=== PATIENT | female | born 1975 | race African-American/Black ===

== ENCOUNTER 2016-12-09 15:02 | Emergency (ER) | payer SELFPAY ==
[~2016-12-09] VITALS: Ht 162.6 cm; Wt 71.5 kg
[2016-12-09 15:12] VITALS: TEMP 37.3; Ht 162.6 cm; Wt 71.5 kg
--- NOTE | 2016-12-09 16:33 | EMERGENCY ROOM VISIT NOTE ---
History First contact with patient: 16:03 Chief Complaint: ABDOMINAL PAIN Stated Complaint: ABDOMINAL PAIN, MORE FREQUENT URINATION, CHILLS Nursing Triage Summary: pt reports abdominal pain since , denies vomitting , denies urinary sx History of Present Illness The patient is a 41 year old female who presents to the Emergency Room with complaints of abdominal pain. The patient states that last she began to have chills at night along with suprapubic pain. Over the weekend she also began to have joint pain, specifically in her knees and hips. Then 2 days ago she began to have diffuse abdominal pain, night sweats, and also noticed some blood in her urine. She also states that at this time she noticed some yellow color on the tissue paper when wiping after urination. Last Wednesday the patient was having intercourse and states that the condom broke during intercourse. She is not on control at this time. She is from [place] but denies any travel since July. The patient denies any headache, constipation, chest pain, nausea, vomiting, changes in vision, numbness, tingling, or any other acute complaints. Review of Systems See HPI for pertinent positives and negatives. A total of ten systems were reviewed and were otherwise negative. Past Medical/Surgical History Medical Problems: (1) No significant past medical history Social History Smoking Status: Never Smoker Current/Historical Medications No Active Prescriptions or Reported Meds Allergies Coded Allergies: No Known Allergies (Unverified , 12/09/16) Physical Exam Vital Signs Date Time Temp Pulse Resp B/P (MAP) Pulse Ox O2 Delivery O2 Flow Rate FiO2 12/09/16 18:24 98 15 108/64 96 12/09/16 15:12 37.3 79 18 126/88 98 Room Air Physical Exam GENERAL: Awake, alert, well-appearing, in no distress HENT: Normocephalic, atraumatic. Oropharynx unremarkable. EYES: Normal conjunctiva. Sclera non-icteric. NECK: Supple. No nuchal rigidity. RESPIRATORY: Clear to auscultation. CARDIAC: Regular rate, normal rhythm. Extremities warm and well perfused. Pulses equal. ABDOMEN: Soft, non-distended. Suprapubic tenderness to palpation. No rebound or guarding. No masses. RECTAL: Deferred. MUSCULOSKELETAL: Chest examination reveals no tenderness. The back is symmetrical on inspection without obvious abnormality. There is mild right sided CVA tenderness to palpation. LOWER EXTREMITIES: Calves are equal size bilaterally and non-tender. No edema. No discoloration. NEURO: Normal sensorium. No sensory or motor deficits noted. SKIN: No rash or jaundice noted. Medical Decision & Procedures Laboratory Results 12/09/16 16:24 Red Blood Count 4.32, Mean Corpuscular Volume 87.7, Mean Corpuscular Hemoglobin 30.3, Mean Corpuscular Hemoglobin Concent 34.6, Mean Platelet Volume 11.0, Neutrophils (%) (Auto) 80.8, Lymphocytes (%) (Auto) 10.5, Monocytes (%) (Auto) 7.8, Eosinophils (%) (Auto) 0.3, Basophils (%) (Auto) 0.4, Neutrophils # (Auto) 7.96, Lymphocytes # (Auto) 1.04, Monocytes # (Auto) 0.77, Eosinophils # (Auto) 0.03, Basophils # (Auto) 0.04 12/09/16 16:24 Test 12/09/16 16:24 12/09/16 16:30 White Blood Count 9.86 K/uL (4.8-10.8) Red Blood Count 4.32 M/uL (4.2-5.4) Hemoglobin 13.1 g/dL (12.0-16.0) Hematocrit 37.9 % (37-47) Mean Corpuscular Volume 87.7 fL (80-100) Mean Corpuscular Hemoglobin 30.3 pg (25-34) Mean Corpuscular Hemoglobin Concent 34.6 g/dl (32-36) Platelet Count 141 K/uL (130-400) Mean Platelet Volume 11.0 fL (7.4-10.4) Neutrophils (%) (Auto) 80.8 % Lymphocytes (%) (Auto) 10.5 % Monocytes (%) (Auto) 7.8 % Eosinophils (%) (Auto) 0.3 % Basophils (%) (Auto) 0.4 % Neutrophils # (Auto) 7.96 K/uL (1.4-6.5) Lymphocytes # (Auto) 1.04 K/uL (1.2-3.4) Monocytes # (Auto) 0.77 K/uL (0.11-0.59) Eosinophils # (Auto) 0.03 K/uL (0-0.5) Basophils # (Auto) 0.04 K/uL (0-0.2) RDW Standard Deviation 43.2 fL (36.4-46.3) RDW Coefficient of Variation 13.3 % (11.5-14.5) Immature Granulocyte % (Auto) 0.2 % Immature Granulocyte # (Auto) 0.02 K/uL (0.00-0.02) Anion Gap 7.0 mmol/L (3-11) Est Creatinine Clear Calc Drug Dose 64.6 ml/min Estimated GFR () 71.7 Estimated GFR (Non- 61.9 BUN/Creatinine Ratio 7.8 (10-20) Calcium Level 8.4 mg/dl (8.5-10.1) Total Bilirubin 0.6 mg/dl (0.2-1) Aspartate Amino Transf (AST/SGOT) 35 U/L (15-37) Alanine Aminotransferase (ALT/SGPT) 61 U/L (12-78) Alkaline Phosphatase 98 U/L (45-117) Total Protein 7.4 gm/dl (6.4-8.2) Albumin 2.9 gm/dl (3.4-5.0) Globulin 4.5 gm/dl (2.5-4.0) Albumin/Globulin Ratio 0.6 (0.9-2) Lipase 105 U/L (73-393) Human Chorionic Gonadotropin, Qual NEG (NEG) Urine Color YELLOW Urine Appearance CLEAR (CLEAR) Urine pH 5.5 (4.5-7.5) Urine Specific [place] 1.013 (1.000-1.030) Urine Protein 1+ (NEG) Urine Glucose (UA) NEG (NEG) Urine Ketones NEG (NEG) Urine Occult Blood 2+ (NEG) Urine Nitrite NEG (NEG) Urine Bilirubin NEG (NEG) Urine Urobilinogen NEG (NEG) Urine Leukocyte Esterase SMALL (NEG) Urine WBC (Auto) 10-30 /hpf (0-5) Urine RBC (Auto) 5-10 /hpf (0-4) Urine Hyaline Casts (Auto) 1-5 /lpf (0-5) Urine Epithelial Cells (Auto) 5-10 /lpf (0-5) Urine Bacteria (Auto) 1+ (NEG) Date/Time Source Procedure Growth Status 12/09/16 17:00 Vaginal Swab Trichomonas Preparation - Final Complete Medical Decision Patient is a 41 year old female that presents with a 1 week history of suprapubic tenderness Etiologies such as appendicitis, diverticulitis, obstruction, inflammatory bowel disease, renal colic, PUD, biliary pathology, pancreatitis, mesenteric ischemia, aortic pathology, infections, genitourinary, tubo-ovarian abscess, UTI , perforated viscus, as well as others were entertained. Labs: CBC, CMP, Lipase, Urinalysis, Urine Culture, Vaginal Culture, GC Culture, Trichomonas Culture Imaging: Pelvic Ultrasound Impression Primary Impression: Urinary tract infection Additional Impression: Fibroid, uterine Patient is a 41 year old female that presents with a 1 week history of suprapubic pain - Urinalysis shows Leukocytes, WBC, and RBCs - most likely significant for urinary tract infection - Transvaginal US also evident for 6.2 cm hypoechoic lesion signifying a large fibroid - Patient to be discharged home on 10 day course of Bactrim - Patient will follow up Transvaginal US findings of Fibroid with her OBGYN back home in [place] Departure Information Dispostion Home / Self-Care Condition GOOD Prescriptions Sulfa/Trimethoprim (Bactrim Ds 800MG/160MG) Tab 1 TAB PO BID for 10 Days, #20 TAB Prov: Jose Ca MD 12/09/16 Referrals No Doctor, Assigned (PCP) Patient Instructions My [facility] Additional Instructions - Trimethoprim-Sulfamethoxazole(Bactrim DS): Take one pill twice daily for 10 days for your Urinary Tract infection. All antibiotics can cause diarrhea. If this occurs and you feel worse or it does not resolve in 1-2 days follow up with your doctor or return to the Emergency Department as this could be signs of serious underlying problems. Any medication can cause an allergic reaction, stop the pills immediately and return to the ER for rash, hives, breathing difficulties, or swelling. Your Prescription was sent to the [facility] on [address]: [address], [place] [address] - Ibuprofen(Motrin, Advil) may be used for fever or pain. Use 600mg every six hours as needed. Take with food. Avoid using more than 2400mg in a 24 hour period. Do not use 2400mg per day for more than three consecutive days without physician direction. Prolonged inappropriate use can lead to stomach upset or ulcers. (AND/OR) - Acetaminophen(Tylenol) may be used for fever or pain. Use 1000mg every six hours as needed. Avoid using more than 4000mg in a 24 hour period. - Return to the Emergency Department immediately for worsening or persistent abdominal pain, vomiting, fevers, chest pains, difficulty breathing, black or bloody stools, worsening of your condition, or as needed. - You were found to have a fibroid on transvaginal ultrasound. The report was given to you in the hospital. 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 Problem Qualifiers Primary Impression: Urinary tract infection Urinary tract infection type: site unspecified Hematuria presence: with hematuria Qualified Codes: N39.0 - Urinary tract infection, site not specified ; R31.9 - Hematuria, unspecified Additional Impression: Fibroid, uterine Uterine leiomyoma location: unspecified location Qualified Codes: D25.9 - Leiomyoma of uterus, unspecified
[2016-12-09 16:40] LABS: BASO % 0.4 %; BASO ABS # 0.04 K/uL (0-0.2); COMPLETE YES; EOS % 0.3 %; HEMATOCRIT 37.9 % (37-47); IG% 0.2 %; LYMPH % 10.5 %; LYMPH ABS # 1.04 K/uL (1.2-3.4); MEAN CELL VOLUME 87.7 fL (80-100); MEAN CORPUSCULAR HEMOGLOBIN 30.3 pg (25-34); MEAN CORPUSCULAR HGB CONC 34.6 g/dl (32-36); MONO % 7.8 %; NEUT % 80.8 %; PLATELET COUNT 141 K/uL (130-400); RED BLOOD COUNT 4.32 M/uL (4.2-5.4); WHITE BLOOD COUNT 9.86 K/uL (4.8-10.8)
[2016-12-09 16:57] LABS: BUN/CREATININE RATIO 7.8 (10-20); CALCIUM 8.4 mg/dl (8.5-10.1); CREATININE 1.1 mg/dl (0.60-1.20); POTASSIUM 3.3 mmol/L (3.5-5.1)
[2016-12-09 17:00] LABS: ALB/GLOB RATIO 0.6 (0.9-2)
[2016-12-09 17:11] LABS: PREG INTERNAL NEGATIVE QC NEG CLEAR BACKGROUND; PREG INTERNAL POSITIVE QC POS CONTROL LINE
[2016-12-09 17:25] LABS: URINE APPEARANCE CLEAR (CLEAR); URINE BILIRUBIN NEG (NEG); URINE COLOR YELLOW; URINE NITRITE NEG (NEG); URINE PH 5.5 (4.5-7.5); URINE SPECIFIC GRAVITY 1.013 (1.000-1.030); UROBILINOGEN NEG (NEG)
[2016-12-09 17:34] LABS: MANUAL MICROSCOPIC REQUIRED? NO; REVIEW REQ? NO
--- NOTE | 2016-12-09 18:21 | DIAGNOSTIC IMAGING REPORT ---
PELVIC ULTRASOUND CLINICAL HISTORY: Suprapubic tenderness. COMPARISON STUDY: None. TECHNIQUE: Transabdominal and transvaginal sonography of the pelvis was performed. FINDINGS: The uterus measures 9.3 x 6.6 x 6.9 cm. There is a 6.2 x 5.9 x 5.4 cm hypoechoic mass with associated shadowing within the right aspect of the uterine body and fundus. This suggests a fibroid which is either mural or submucosal in location. This distorts the endometrium. The endometrium is difficult to assess on this exam but measures approximately 8 mm in thickness. The right ovary is normal, measuring 1.9 x 1.3 x 1.4 cm. The left ovary measures 4.6 x 2.4 x 2.5 cm. There is color flow within each ovary. Note was made of a 1.8 cm dominant follicle or hemorrhagic cyst within the left ovary. There was an additional left ovarian exophytic cyst that measured 2.1 cm. Trace fluid within the cul-de-sac was noted. IMPRESSION: 1. 6.2 cm hypoechoic lesion with associated shadowing within the right central aspect of the uterine body and fundus which suggests a large fibroid which is either mural or submucosal in location. 2. No sonographic evidence of ovarian torsion. 3. 1.8 cm dominant follicle or hemorrhagic cyst within left ovary. 2.1 cm left paraovarian cyst. Electronically signed by: Blil Murdock M.D. 12/09/2016 6:19 PM Dictated Date/Time: 12/09/2016 6:14 PM
[2016-12-09] MEDS ORDERED: SULF800T23 PO (18:39)
--- NOTE | 2016-12-09 18:55 | EMERGENCY ROOM VISIT NOTE ---
History Report prepared by Tiffany: Olimpia Smith Under the Supervision of: Dr. Esdras Palm M.D. First contact with patient: 16:03 Chief Complaint: ABDOMINAL PAIN Stated Complaint: ABDOMINAL PAIN, MORE FREQUENT URINATION, CHILLS Nursing Triage Summary: pt reports abdominal pain since , denies vomitting , denies urinary sx History of Present Illness The patient is a 41 year old female who presents to the Emergency Room with complaints of constant lower abdominal pain beginning 6 days prior to arrival. She describes the pain as a cramping sensation. The patient states that 5 days ago she was having sexual intercourse with her partner when the condom broke. She is not on control. She is unsure of she is the only person her partner is sexually active with. She is concerned for STDs. The patient 3 days ago developed b/l knee and ankle joint pain. She notes chills developed then also. The patient notes yellow discharge when she wipes after urinating. She denies blood in her urine or burning with urination. The patient is experiencing urinary frequency but states that she does drink a lot of water. The patient denies fevers, chest pain, nausea, vomiting, diarrhea, constipation or a rash. The patient's has no history of abdominal surgery. She denies an STD history. Her LNMP was November 21. She is from [place] and notes her last visit was in July. She has not traveled since. 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 Review of Systems See HPI for pertinent positives & negatives. A total of 10 systems reviewed and were otherwise negative. Past Medical & Surgical Medical Problems: (1) No significant past medical history Family History Patient reports no known family medical history. Social History Smoking Status: Never Smoker Smokeless Tobacco Use: No Marital Status: single Housing Status: lives alone Occupation Status: employed Current/Historical Medications Scheduled Sulfa/Trimethoprim (Bactrim Ds 800MG/160MG), 1 TAB PO BID Allergies Coded Allergies: No Known Allergies (Unverified , 12/09/16) Physical Exam Vital Signs Date Time Temp Pulse Resp B/P (MAP) Pulse Ox O2 Delivery O2 Flow Rate FiO2 12/09/16 18:24 98 15 108/64 96 12/09/16 15:12 37.3 79 18 126/88 98 Room Air Physical Exam Constitutional: Vital signs reviewed. Eyes: Pupils are equal round reactive to light. Conjunctiva are noninjected. ENT: Pharynx is clear without erythema or exudate. Mucous membranes are moist. Neck supple without meningeal signs. Respiratory: Clear to auscultation bilaterally. Breath sounds are equal bilaterally. Cardiovascular: Regular rate and rhythm. No rubs or gallops. GI: Soft, no guarding, nondistended and suprapubic tenderness. Nontender at McBurney's point. Bowel sounds are present. Mild right CVA tenderness. Musculoskeletal: No peripheral edema. No lower extremity tenderness. Integumentary: No cyanosis. Neurological: The patient is awake and alert. No focal deficits. Psychiatric: Normal affect. Medical Decision & Procedures ER Provider Diagnostic Interpretation: PELVIC ULTRASOUND CLINICAL HISTORY: Suprapubic tenderness. COMPARISON STUDY: None. TECHNIQUE: Transabdominal and transvaginal sonography of the pelvis was performed. FINDINGS: The uterus measures 9.3 x 6.6 x 6.9 cm. There is a 6.2 x 5.9 x 5.4 cm hypoechoic mass with associated shadowing within the right aspect of the uterine body and fundus. This suggests a fibroid which is either mural or submucosal in location. This distorts the endometrium. The endometrium is difficult to assess on this exam but measures approximately 8 mm in thickness. The right ovary is normal, measuring 1.9 x 1.3 x 1.4 cm. The left ovary measures 4.6 x 2.4 x 2.5 cm. There is color flow within each ovary. Note was made of a 1.8 cm dominant follicle or hemorrhagic cyst within the left ovary. There was an additional left ovarian exophytic cyst that measured 2.1 cm. Trace fluid within the cul-de-sac was noted. IMPRESSION: 1. 6.2 cm hypoechoic lesion with associated shadowing within the right central aspect of the uterine body and fundus which suggests a large fibroid which is either mural or submucosal in location. 2. No sonographic evidence of ovarian torsion. 3. 1.8 cm dominant follicle or hemorrhagic cyst within left ovary. 2.1 cm left paraovarian cyst. Electronically signed by: Bill Murdock M.D. 12/09/2016 6:19 PM Dictated Date/Time: 12/09/2016 6:14 PM Laboratory Results 12/09/16 16:24 Red Blood Count 4.32, Mean Corpuscular Volume 87.7, Mean Corpuscular Hemoglobin 30.3, Mean Corpuscular Hemoglobin Concent 34.6, Mean Platelet Volume 11.0, Neutrophils (%) (Auto) 80.8, Lymphocytes (%) (Auto) 10.5, Monocytes (%) (Auto) 7.8, Eosinophils (%) (Auto) 0.3, Basophils (%) (Auto) 0.4, Neutrophils # (Auto) 7.96, Lymphocytes # (Auto) 1.04, Monocytes # (Auto) 0.77, Eosinophils # (Auto) 0.03, Basophils # (Auto) 0.04 12/09/16 16:24 Test 12/09/16 16:24 12/09/16 16:30 White Blood Count 9.86 K/uL (4.8-10.8) Red Blood Count 4.32 M/uL (4.2-5.4) Hemoglobin 13.1 g/dL (12.0-16.0) Hematocrit 37.9 % (37-47) Mean Corpuscular Volume 87.7 fL (80-100) Mean Corpuscular Hemoglobin 30.3 pg (25-34) Mean Corpuscular Hemoglobin Concent 34.6 g/dl (32-36) Platelet Count 141 K/uL (130-400) Mean Platelet Volume 11.0 fL (7.4-10.4) Neutrophils (%) (Auto) 80.8 % Lymphocytes (%) (Auto) 10.5 % Monocytes (%) (Auto) 7.8 % Eosinophils (%) (Auto) 0.3 % Basophils (%) (Auto) 0.4 % Neutrophils # (Auto) 7.96 K/uL (1.4-6.5) Lymphocytes # (Auto) 1.04 K/uL (1.2-3.4) Monocytes # (Auto) 0.77 K/uL (0.11-0.59) Eosinophils # (Auto) 0.03 K/uL (0-0.5) Basophils # (Auto) 0.04 K/uL (0-0.2) RDW Standard Deviation 43.2 fL (36.4-46.3) RDW Coefficient of Variation 13.3 % (11.5-14.5) Immature Granulocyte % (Auto) 0.2 % Immature Granulocyte # (Auto) 0.02 K/uL (0.00-0.02) Anion Gap 7.0 mmol/L (3-11) Est Creatinine Clear Calc Drug Dose 64.6 ml/min Estimated GFR () 71.7 Estimated GFR (Non- 61.9 BUN/Creatinine Ratio 7.8 (10-20) Calcium Level 8.4 mg/dl (8.5-10.1) Total Bilirubin 0.6 mg/dl (0.2-1) Aspartate Amino Transf (AST/SGOT) 35 U/L (15-37) Alanine Aminotransferase (ALT/SGPT) 61 U/L (12-78) Alkaline Phosphatase 98 U/L (45-117) Total Protein 7.4 gm/dl (6.4-8.2) Albumin 2.9 gm/dl (3.4-5.0) Globulin 4.5 gm/dl (2.5-4.0) Albumin/Globulin Ratio 0.6 (0.9-2) Lipase 105 U/L (73-393) Human Chorionic Gonadotropin, Qual NEG (NEG) Urine Color YELLOW Urine Appearance CLEAR (CLEAR) Urine pH 5.5 (4.5-7.5) Urine Specific [place] 1.013 (1.000-1.030) Urine Protein 1+ (NEG) Urine Glucose (UA) NEG (NEG) Urine Ketones NEG (NEG) Urine Occult Blood 2+ (NEG) Urine Nitrite NEG (NEG) Urine Bilirubin NEG (NEG) Urine Urobilinogen NEG (NEG) Urine Leukocyte Esterase SMALL (NEG) Urine WBC (Auto) 10-30 /hpf (0-5) Urine RBC (Auto) 5-10 /hpf (0-4) Urine Hyaline Casts (Auto) 1-5 /lpf (0-5) Urine Epithelial Cells (Auto) 5-10 /lpf (0-5) Urine Bacteria (Auto) 1+ (NEG) Date/Time Source Procedure Growth Status 12/09/16 17:00 Vaginal Swab Trichomonas Preparation - Final Complete Laboratory results as reviewed by me. ED Course 1623: The patient was evaluated in room C5. A complete history and physical exam was performed. Medical Decision This is a 41-year-old female who presents with abdominal pain and vaginal discharge. Differential diagnosis includes tubo-ovarian abscess, PID, STI, UTI , ovarian cyst, uterine fibroid. I did perform a limited focused review of portions of the patient's old chart on the electronic medical record. The patient has had no visits to this hospital. Medication Reconciliation: I attest that I have personally reviewed the patient' s current medication list. Blood Pressure Screening: Patient was found to have normal blood pressure on screening and does not require follow-up. I did evaluate the patient as noted above. IV access was established. Pelvic examination was performed by the resident. GC and chlamydia swabs and Trichomonas swabs were obtained. Genital cultures were obtained as well. The patient was informed that we were not testing her for syphilis and HIV which would have to be done and her primary care physician's office. I did personally review the patient's urinalysis as described above. I did order and review the patient's blood work as noted in the electronic medical record. I did order an ultrasound of the pelvis. I did review the images myself as well as the radiology report as described above. She does have a uterine fibroid. The patient was informed of her test results. She was advised follow with EVENT MARKETING COORDINATOR. She was discharged in good condition with a prescription for after him. Resident Physician Supervision Note: I did evaluate and examine this patient myself. I did guide management for the patient. I agree with the resident's (Dr. Lagos) assessment as discussed. Please see the resident's dictation for further details. Impression Primary Impression: Urinary tract infection Additional Impression: Fibroid, uterine Scribe Attestation The scribe's documentation has been prepared under my direct and personally reviewed by me in its entirety. I confirm that the note above accurately reflects all work, treatment, procedures, and medical decision making performed by me. Departure Information Prescriptions Sulfa/Trimethoprim (Bactrim Ds 800MG/160MG) Tab 1 TAB PO BID for 10 Days, #20 TAB Prov: Jose Ca MD 12/09/16 Referrals No Doctor, Assigned (PCP) Patient Instructions My [facility] Additional Instructions - Trimethoprim-Sulfamethoxazole(Bactrim DS): Take one pill twice daily for 10 days for your Urinary Tract infection. All antibiotics can cause diarrhea. If this occurs and you feel worse or it does not resolve in 1-2 days follow up with your doctor or return to the Emergency Department as this could be signs of serious underlying problems. Any medication can cause an allergic reaction, stop the pills immediately and return to the ER for rash, hives, breathing difficulties, or swelling. Your Prescription was sent to the [facility] on [address]: [address], [place] [address] - Ibuprofen(Motrin, Advil) may be used for fever or pain. Use 600mg every six hours as needed. Take with food. Avoid using more than 2400mg in a 24 hour period. Do not use 2400mg per day for more than three consecutive days without physician direction. Prolonged inappropriate use can lead to stomach upset or ulcers. (AND/OR) - Acetaminophen(Tylenol) may be used for fever or pain. Use 1000mg every six hours as needed. Avoid using more than 4000mg in a 24 hour period. - Return to the Emergency Department immediately for worsening or persistent abdominal pain, vomiting, fevers, chest pains, difficulty breathing, black or bloody stools, worsening of your condition, or as needed. - You were found to have a fibroid on transvaginal ultrasound. The report was given to you in the hospital. Please take this to your Hay Stacker and have the results reviewed as soon as possible. Problem Qualifiers Primary Impression: Urinary tract infection Urinary tract infection type: site unspecified Hematuria presence: with hematuria Qualified Codes: N39.0 - Urinary tract infection, site not specified ; R31.9 - Hematuria, unspecified Additional Impression: Fibroid, uterine Uterine leiomyoma location: unspecified location Qualified Codes: D25.9 - Leiomyoma of uterus, unspecified
[2016-12-09 19:15] VITALS: BP 104/68; PULSE 72; O2SAT 98
== END 2016-12-09 19:18 | disposition home or self-care (01) ==
LOC: C.EDB 15:07 → C.EDC 19:18
DX: N39.0 Urinary tract infection, site not specified (principal); D25.9 Leiomyoma of uterus, unspecified; R31.9 Hematuria, unspecified